=== PATIENT | male | born 1985 | race Caucasian/White ===

== ENCOUNTER 2020-05-29 14:18 | Inpatient (IN) | payer OTHER ==
[2020-05-29 15:25] VITALS: BMI 26.1
[2020-05-29] MEDS ORDERED: MAG HYDROX/AL HYDROX/SIMETH 30 ML UNIT-DOSE CUP PO PRN (16:42)
[2020-05-29] MEDS ORDERED: IBUPROFEN 400 MG TABLET (FP) PO PRN (16:42)
[2020-05-29] MEDS ORDERED: MAGNESIUM CITRATE 300 ML BOTTLE PO PRN (16:42)
[2020-05-29] MEDS ORDERED: MENTHOL/PHENOL 1 EACH UD MM PRN (16:42)
[2020-05-29] MEDS ORDERED: ONDANSETRON *ODT* 4 MG TABLET SL PRN (16:42)
[2020-05-29] MEDS ORDERED: NICOTINE POLACRILEX 2 MG GUM BUC PRN (16:42)
[2020-05-29] MEDS ORDERED: ACETAMINOPHEN 325 MG TABLET (FP) PO PRN ×2 (16:42)
[2020-05-29] MEDS ORDERED: BISMUTH SUBSALICYLATE 524 MG/30 ML UD PO PRN (16:42)
[2020-05-29] MEDS ORDERED: MAGNESIUM HYDROX 2400MG/30ML ORAL SUSPENSION 30 ML CUP PO PRN (16:42)
[2020-05-29] MEDS: chlordiazePOXIDE HCL 25 MG CAPSULE PO PRN (18:26)
[2020-05-29] MEDS: hydrOXYzine PAMOATE 25 MG CAPSULE (FP) PO SCH ×2 (18:33→21:11)
[2020-05-29] MEDS: NICOTINE 7 MG/24 HOURS TOPICAL PATCH TD SCH (18:34)
[2020-05-29] MEDS: PRENATAL VITAMINS W/ FOLIC ACID TABLET (FP) PO SCH (18:34)
[2020-05-29] MEDS: LISINOPRIL 20 MG TABLET PO SCH (21:11)
[2020-05-29] MEDS: THIAMINE HCL 100 MG TABLET (FP) PO SCH (22:12)
[2020-05-29] MEDS: MELATONIN 5 MG TABLETS PO SCH (22:13)
[2020-05-29] MEDS: chlordiazePOXIDE HCL 25 MG CAPSULE PO SCH (22:13)
[2020-05-30] MEDS: chlordiazePOXIDE HCL 25 MG CAPSULE PO PRN (02:34)
[2020-05-30] MEDS: METHOCARBAMOL 500 MG TABLET PO PRN ×3 (02:34→22:04)
[2020-05-30] MEDS: chlordiazePOXIDE HCL 25 MG CAPSULE PO SCH ×4 (05:16→22:03)
[2020-05-30] MEDS: hydrOXYzine PAMOATE 25 MG CAPSULE (FP) PO SCH (05:17)
[2020-05-30] MEDS: PRENATAL VITAMINS W/ FOLIC ACID TABLET (FP) PO SCH (10:08)
[2020-05-30] MEDS: NICOTINE 7 MG/24 HOURS TOPICAL PATCH TD SCH (10:08)
[2020-05-30 11:48] LABS: HEMATOCRIT 37.2 % (35.4-49); HEMOGLOBIN 12.4 GM/dL (11.7-16.9); MCH 33.3 pg (25.7-33.7); MCHC 33.2 g/dl (32.0-35.9); MEAN CELL VOLUME 100.3 fl (80-96); MEAN PLT VOLUME 9.3 fl (7.5-11.1); PLATELET COUNT 502 K/MM3 (134-434); RBC 3.71 M/mm3 (4.00-5.60); RDW 14.1 % (11.9-15.9); WHITE BLOOD COUNT 6.6 K/mm3 (4.0-10.0)
[2020-05-30 11:51] LABS: POTASSIUM 4.8 mmol/L (3.5-5.1)
[2020-05-30 11:53] LABS: ALBUMIN 3.8 g/dl (3.4-5.0); BLOOD UREA NITROGEN 9.8 mg/dL (7-18); CALCIUM 9.3 mg/dL (8.5-10.1)
[2020-05-30 11:56] LABS: CREATININE 0.7 mg/dL (0.55-1.3)
[2020-05-30 11:58] LABS: BILIRUBIN,TOTAL 0.4 mg/dL (0.2-1); TOT PROT 6.7 g/dl (6.4-8.2)
[2020-05-30] MEDS ORDERED: TETANUS, DIPHTHERIA TOX,ADULT 0.5 ML VIAL IM ONE (12:00)
[2020-05-30] MEDS ORDERED: TETANUS AND DIPHTHERIA TOXOID 0.5 ML DISP.SYRIN IM ONE (12:00)
[2020-05-30] MEDS ORDERED: PNEUMOCOCCAL 23 VACCINE 0.5 ML VIAL IM ONE (12:00)
[2020-05-30] MEDS ORDERED: FLU VACCINE (FLULAVAL) PF 60 MCG/0.5 ML SYRINGE 2020-2021 IM ONE (12:00)
[2020-05-30] MEDS ORDERED: PNEUMOC 13-VAL CONJ-DIP CRM/PF 0.5 ML DISP.SYRIN IM ONE (12:00)
[2020-05-30] MEDS: BISACODYL 5 MG TABLET.DR (FP) PO SCH (13:25)
[2020-05-30] MEDS: hydrOXYzine PAMOATE 25 MG CAPSULE (FP) PO PRN (13:29)
[2020-05-30] MEDS ORDERED: cloNIDine HCL 0.1 MG TABLET PO ONE (18:56)
[2020-05-30] MEDS: MELATONIN 5 MG TABLETS PO SCH (22:02)
[2020-05-30] MEDS: THIAMINE HCL 100 MG TABLET (FP) PO SCH (22:02)
[2020-05-30] MEDS: LISINOPRIL 20 MG TABLET PO SCH (22:02)
[2020-05-31] MEDS: chlordiazePOXIDE HCL 25 MG CAPSULE PO SCH ×4 (05:09→22:09)
[2020-05-31] MEDS: BISACODYL 5 MG TABLET.DR (FP) PO SCH (10:38)
[2020-05-31] MEDS: PRENATAL VITAMINS W/ FOLIC ACID TABLET (FP) PO SCH (10:38)
[2020-05-31] MEDS: NICOTINE 7 MG/24 HOURS TOPICAL PATCH TD SCH (10:38)
[2020-05-31] MEDS: METHOCARBAMOL 500 MG TABLET PO PRN (10:41)
[2020-05-31] MEDS: hydrOXYzine PAMOATE 25 MG CAPSULE (FP) PO PRN ×2 (10:42→22:08)
[2020-05-31] MEDS: MELATONIN 5 MG TABLETS PO SCH (22:08)
[2020-05-31] MEDS: THIAMINE HCL 100 MG TABLET (FP) PO SCH (22:08)
[2020-05-31] MEDS: LISINOPRIL 20 MG TABLET PO SCH (22:08)
[2020-06-01] MEDS ORDERED: chlordiazePOXIDE HCL 10 MG CAPSULE PO PRN
[2020-06-01] MEDS: chlordiazePOXIDE HCL 10 MG CAPSULE PO SCH ×4 (05:34→22:24)
[2020-06-01] MEDS: hydrOXYzine PAMOATE 25 MG CAPSULE (FP) PO PRN ×2 (10:13→22:23)
[2020-06-01] MEDS: PRENATAL VITAMINS W/ FOLIC ACID TABLET (FP) PO SCH (10:13)
[2020-06-01] MEDS: METHOCARBAMOL 500 MG TABLET PO PRN ×2 (10:13→22:24)
[2020-06-01] MEDS: BISACODYL 5 MG TABLET.DR (FP) PO SCH (10:14)
[2020-06-01] MEDS: NICOTINE 7 MG/24 HOURS TOPICAL PATCH TD SCH (10:14)
[2020-06-01] MEDS: LISINOPRIL 20 MG TABLET PO SCH (22:23)
[2020-06-01] MEDS: MELATONIN 5 MG TABLETS PO SCH (22:23)
[2020-06-01] MEDS: THIAMINE HCL 100 MG TABLET (FP) PO SCH (22:23)
[2020-06-02] MEDS: chlordiazePOXIDE HCL 10 MG CAPSULE PO SCH ×2 (05:29→18:05)
[2020-06-02] MEDS: BISACODYL 5 MG TABLET.DR (FP) PO SCH (10:14)
[2020-06-02] MEDS: PRENATAL VITAMINS W/ FOLIC ACID TABLET (FP) PO SCH (10:14)
[2020-06-02] MEDS: NICOTINE 7 MG/24 HOURS TOPICAL PATCH TD SCH (10:15)
[2020-06-02] MEDS: hydrOXYzine PAMOATE 25 MG CAPSULE (FP) PO PRN (10:16)
[2020-06-02] MEDS: LISINOPRIL 20 MG TABLET PO SCH (22:21)
[2020-06-02] MEDS: THIAMINE HCL 100 MG TABLET (FP) PO SCH (22:22)
[2020-06-02] MEDS: MELATONIN 5 MG TABLETS PO SCH (22:22)
[2020-06-02] MEDS: METHOCARBAMOL 500 MG TABLET PO PRN (22:25)
[2020-06-03] MEDS ORDERED: chlordiazePOXIDE HCL 10 MG CAPSULE PO ONE (05:00)
[2020-06-03 09:13] VITALS: BP 126/88; PULSE 80; TEMP 97.1
[2020-06-03] MEDS: BISACODYL 5 MG TABLET.DR (FP) PO SCH (10:05)
[2020-06-03] MEDS: PRENATAL VITAMINS W/ FOLIC ACID TABLET (FP) PO SCH (10:05)
[2020-06-03] MEDS: NICOTINE 7 MG/24 HOURS TOPICAL PATCH TD SCH (10:05)
== END 2020-06-03 11:26 | disposition home or self-care (01) | DRG 775 ==
LOC: YASAS 14:18 → Y3N 15:33
PROVIDERS: ADMIT Allergy & Immunology; ATTEND Allergy & Immunology
PROC: HZ2ZZZZ Detoxification Services for Substance Abuse Treatment (ICD-10-PCS; principal; 2020-05-29)
DX: F10.230 Alcohol dependence with withdrawal, uncomplicated (principal); I10 Essential (primary) hypertension; K59.09 Other constipation; G10 Huntington's disease; M54.5 Low back pain; G89.29 Other chronic pain; Z87.891 Personal history of nicotine dependence; Z88.6 Allergy status to analgesic agent
CPT/HCPCS: 36415; 80053; 85027; 86780; 90732; 93005; 93010; C9803; G0008; G0009; J0735; Q2036; U0003